=== PATIENT | female | born 1960 | race Caucasian/White ===

== ENCOUNTER 2022-02-18 22:19 | Emergency (ER) | payer OTHER ==
[~2022-02-18] VITALS: Ht 167.6 cm; Wt 92.5 kg
--- NOTE | 2022-02-18 22:29 | NUR ---
PT TAKEN TO BED 11 BIBA ALS
[2022-02-18 22:30] VITALS: BP 129/79
--- NOTE | 2022-02-18 22:31 | NUR ---
Patient BIB ambulance. Patiet stated she "ate clam chowder and started experiencing numbness and tingling." Patient stated she attempted to induce vomiting. Patient stated medical hx of htn. Patient is resting comfortably in bed, a/ox4, no c/o pain or s/s of distress. Patient oxygen saturation on room air is 95%. Patient does not have a fever, oral temperature 98 degrees F. Addendum: 02/18/22 at 2304 by [email or web address] Patient BIB ambulance. Patiet stated she "ate clam chowder and started experiencing numbness and tingling." Patient stated she attempted to induce vomiting. Patient stated medical hx of htn. Patient is resting comfortably in bed, a/ox4, no c/o pain or s/s of distress. Patient oxygen saturation on room air is 95%. Patient does not have a fever, oral temperature 98 degrees F. Patient stated she has allergies to shellfish and lotensin. Addendum: 02/18/22 at 2305 by [email or web address] Patient BIB ambulance. Patiet stated she "ate clam chowder and started experiencing numbness and tingling." Patient stated she "took benadryl due to dog allergy before eating clam chowder, EMT stated 50mg benadryl IM given to patient on transport. Patient stated she attempted to induce vomiting. Patient stated medical hx of htn. Patient is resting comfortably in bed, a/ox4, no c/o pain or s/s of distress. Patient oxygen saturation on room air is 95%. Patient does not have a fever, oral temperature 98 degrees F. Patient stated she has allergies to shellfish and lotensin.
[2022-02-18] MEDS ORDERED: predniSONE 20 MG TAB PO ONE (23:40)
[2022-02-18] MEDS ORDERED: PRED20TA5 PO (23:41)
[2022-02-18] MEDS ORDERED: DIPH25TA53 PO (23:41)
[2022-02-19] MEDS ORDERED: predniSONE 20 MG TAB ONE (00:42)
[2022-02-19 01:10] VITALS: BP 132/80
--- NOTE | 2022-02-19 01:10 | NUR ---
Patient discharged with v/s stable. Written and verbal after care instructions given and explained. Patient alert, oriented and verbalized understanding of instructions. Ambulatory with steady gait. All questions addressed prior to discharge. ID band removed. Patient advised to follow up with PMD. Rx of BENADRYL AND DELTASONE given. Patient educated on indication of medication including possible reaction and side effects. Opportunity to ask questions provided and answered. VSS, A/OX4, AMBULATORY, UNLABORED BREATHING, AND CALM DEMEANOR.
[2022-02-19] MEDS ORDERED: PRED20TA5 PO (01:15)
[2022-02-19] MEDS ORDERED: DIPH25TA53 PO (01:15)
== END 2022-02-19 01:10 | disposition home or self-care (01) ==
LOC: MED 22:19
DX: R51.9 Headache, unspecified (principal); T45.0X5A Adverse effect of antiallergic and antiemetic drugs, initial encounter; Y92.89 Other specified places as the place of occurrence of the external cause; I10 Essential (primary) hypertension; E78.5 Hyperlipidemia, unspecified; Z98.890 Other specified postprocedural states
CPT/HCPCS: 99283; J7512

== ENCOUNTER 2022-02-26 18:14 | Emergency (ER) | payer OTHER ==
[~2022-02-26] VITALS: Ht 167.6 cm; Wt 90.7 kg
[~2022-02-26 18:14] MED LIST: DIPH25TA53 PO; PRED20TA5 PO
[2022-02-26 18:16] VITALS: BP 116/77
--- NOTE | 2022-02-26 18:37 | NUR ---
MAHESH HERRERA AT BEDSIDE FOR EVAL
--- NOTE | 2022-02-26 18:43 | NUR ---
Female Junior Software Developer accompanied female patient for Rectal Exam.
--- NOTE | 2022-02-26 18:49 | NUR ---
61 Y/O FEMALE BIBA FROM HOME C/O BLOOD IN STOOL X 2 WEEKS, DENIES ABD PAIN, N/V/D. ALLERGY: LOTENSIN PMH: HTN
[2022-02-26] MEDS ORDERED: DOCU-299 PO (19:51)
[2022-02-26] MEDS ORDERED: HYDR25SU91 RC (19:51)
[2022-02-26 20:06] LABS: BASOPHILS # (AUTO) 0.1 K/uL (0.00-0.22); BASOPHILS % (AUTO) 0.3 % (0.0-2.0); EOSINOPHILS # (AUTO) 0.2 K/uL (0-0.4); EOSINOPHILS % (AUTO) 1.6 % (0.0-4.0); HEMATOCRIT 41.1 % (36-48); HEMOGLOBIN 14.2 g/dL (12.0-16.0); LYMPHOCYTES % (AUTO) 34.1 % (20.5-51.1); MEAN CORPUSCULAR HEMOGLOBIN 31 pg (27-31); MEAN CORPUSCULAR HGB CONC 35 g/dL (33-37); MEAN CORPUSCULAR VOLUME 90.5 fL (80-94); MONOCYTES # (AUTO) 1.6 K/uL (0.8-1.0); MONOCYTES % (AUTO) 10.7 % (1.7-9.3); NEUTROPHILS # (AUTO) 7.8 K/uL (1.8-7.7); NEUTROPHILS % (AUTO) 53.3 % (42.2-75.2); PLATELET COUNT (AUTO) 443 K/uL (140-450); RED BLOOD CELL COUNT(AUTO) 4.54 MIL/uL (4.20-5.40); RED CELL DISTRIBUTION WIDTH 13.8 % (11.6-13.7); WHITE BLOOD COUNT (AUTO) 14.6 K/uL (4.8-10.8)
[2022-02-26 20:18] LABS: ANION GAP 12.9 (8-16); CARBON DIOXIDE 27.9 mmol/L (21-32); CREATININE 1.1 mg/dL (0.6-1.3)
[2022-02-26 20:21] LABS: POTASSIUM 2.8 mmol/L (3.5-5.1)
--- NOTE | 2022-02-26 20:29 | NUR ---
pt ambulated to bed #8
[2022-02-26] MEDS ORDERED: POTASSIUM CHLORIDE 10 MEQ TABER PO ONE ×2 (20:30→20:35)
[2022-02-26 21:17] VITALS: BP 116/77
--- NOTE | 2022-02-26 21:17 | NUR ---
Patient discharged with v/s stable. Written and verbal after care instructions given RECTAL BLEEDING and explained. Patient alert, oriented and verbalized understanding of instructions. Ambulatory with steady gait. All questions addressed prior to discharge. ID band removed. Patient advised to follow up with PMD. Rx of COLACE, AND HYDROCORTISONE ACETATE given.
== END 2022-02-26 21:17 | disposition home or self-care (01) ==
LOC: MED 18:14
DX: K64.4 Residual hemorrhoidal skin tags (principal); E87.6 Hypokalemia; I10 Essential (primary) hypertension; E78.5 Hyperlipidemia, unspecified; Z79.4 Long term (current) use of insulin; Z90.711 Acquired absence of uterus with remaining cervical stump; F17.210 Nicotine dependence, cigarettes, uncomplicated
CPT/HCPCS: 36415; 80048; 85025; 99283

== ENCOUNTER 2022-07-24 13:21 | Emergency (ER) | payer OTHER ==
[~2022-07-24] VITALS: Ht 167.6 cm; Wt 90.7 kg
[~2022-07-24 13:21] MED LIST changes: +DOCU-299 PO; +HYDR25SU91 RC
[2022-07-24 13:31] VITALS: BP 126/69
[2022-07-24] MEDS ORDERED: TRAZ-343 PO (13:55)
[2022-07-24] MEDS ORDERED: METO25TE2 PO (13:57)
[2022-07-24] MEDS ORDERED: AMLO10TA PO (13:58)
[2022-07-24] MEDS ORDERED: GABA300C PO (14:00)
[2022-07-24 14:36] LABS: APPEARANCE,URINE CLEAR (CLEAR); BILIRUBIN,URINE NEGATIVE (NEGATIVE); BLOOD, URINE NEGATIVE (NEGATIVE); COLOR,URINE YELLOW (YELLOW); LEUKOCYTE ESTERASE ,URINE NEGATIVE (NEGATIVE); NITRITE, URINE NEGATIVE (NEGATIVE); PH,URINE 6.5 (5.0-9.0); UGLUCOSE NEGATIVE (NEGATIVE)
[2022-07-24] MEDS ORDERED: NAPROXEN 500 MG TAB PO SCH (14:50)
[2022-07-24] MEDS ORDERED: IBUPROFEN 600 MG TAB PO ONE (14:55)
[2022-07-24] MEDS ORDERED: LID5T TP (14:55)
[2022-07-24] MEDS ORDERED: CYCL-711 PO (14:55)
[2022-07-24 15:13] VITALS: BP 122/72
== END 2022-07-24 15:13 | disposition home or self-care (01) ==
LOC: MED 14:03
DX: M62.830 Muscle spasm of back (principal); G89.29 Other chronic pain; I10 Essential (primary) hypertension; Z79.899 Other long term (current) drug therapy; Z88.8 Allergy status to other drugs, medicaments and biological substances
CPT/HCPCS: 81003; 99283

== ENCOUNTER 2022-12-07 11:52 | Emergency (ER) | payer OTHER ==
[~2022-12-07] VITALS: Ht 167.6 cm; Wt 89.4 kg
[~2022-12-07 11:52] MED LIST changes: +AMLO10TA PO; +CYCL-711 PO; -DOCU-299 PO; +GABA300C PO; -HYDR25SU91 RC; +LID5T TP; +METO25TE2 PO; -PRED20TA5 PO; +TRAZ-343 PO
[2022-12-07 11:57] VITALS: BP 140/97
[2022-12-07 13:48] LABS: BASOPHILS % (AUTO) 0.3 % (0.0-2.0); EOSINOPHILS # (AUTO) 0.1 K/uL (0-0.4); EOSINOPHILS % (AUTO) 0.9 % (0.0-4.0); HEMATOCRIT 38.7 % (36-48); HEMOGLOBIN 13.2 g/dL (12.0-16.0); LYMPHOCYTES # (AUTO) 2.2 K/uL (2.5-16.5); LYMPHOCYTES % (AUTO) 35.1 % (20.5-51.1); MEAN CORPUSCULAR HEMOGLOBIN 31 pg (27-31); MEAN CORPUSCULAR HGB CONC 34 g/dL (33-37); MEAN CORPUSCULAR VOLUME 90.6 fL (80-94); MONOCYTES # (AUTO) 1.1 K/uL (0.8-1.0); MONOCYTES % (AUTO) 17.7 % (1.7-9.3); NEUTROPHILS # (AUTO) 2.9 K/uL (1.8-7.7); PLATELET COUNT (AUTO) 303 K/uL (140-450); RED BLOOD CELL COUNT(AUTO) 4.27 MIL/uL (4.20-5.40); RED CELL DISTRIBUTION WIDTH 13.9 % (11.6-13.7); WHITE BLOOD COUNT (AUTO) 6.3 K/uL (4.8-10.8)
[2022-12-07 14:03] LABS: PROTHROMBIN TIME 10.8 secs (10.8-13.4)
[2022-12-07 14:04] LABS: ALBUMIN 3.6 g/dL (3.4-5.0); ANION GAP 10.8 (8-16); CARBON DIOXIDE 29.1 mmol/L (21-32); CREATININE 0.9 mg/dL (0.6-1.3); TOTAL BILIRUBIN 0.3 mg/dL (0.0-1.0)
[2022-12-07 14:07] LABS: POTASSIUM 2.9 mmol/L (3.5-5.1)
[2022-12-07] MEDS ORDERED: POTASSIUM CHLORIDE 10 MEQ TABER PO ONE (14:20)
[2022-12-07] MEDS ORDERED: HYDR-2734 TP (14:22)
--- NOTE | 2022-12-07 14:45 | NUR ---
Patient discharged with v/s stable. Written and verbal after care instructions given and explained. Patient alert, oriented and verbalized understanding of instructions. Ambulatory with steady gait. All questions addressed prior to discharge. ID band removed. Patient advised to follow up with PMD. Rx of anusol given. Patient educated on indication of medication including possible reaction and side effects. Opportunity to ask questions provided and answered.
== END 2022-12-07 14:45 | disposition home or self-care (01) ==
LOC: MED 11:52
DX: K62.5 Hemorrhage of anus and rectum (principal); E87.6 Hypokalemia; R20.2 Paresthesia of skin; I10 Essential (primary) hypertension; Z88.8 Allergy status to other drugs, medicaments and biological substances; Z79.899 Other long term (current) drug therapy; Z90.711 Acquired absence of uterus with remaining cervical stump
CPT/HCPCS: 36415; 80053; 85025; 85610; 86886; 86900; 86901; 99283

== ENCOUNTER 2023-02-08 18:05 | Emergency (ER) | payer OTHER ==
[~2023-02-08] VITALS: Ht 167.6 cm; Wt 89.9 kg
[~2023-02-08 18:05] MED LIST changes: +HYDR-2734 TP
[2023-02-08 18:10] VITALS: BP 150/82; PULSE 96; RESP 20; TEMP 97.5; O2SAT 98
--- NOTE | 2023-02-08 19:58 | NUR ---
PTT AKEN TO BED 2
[2023-02-08 20:00] LABS: BASOPHILS % (AUTO) 0.2 % (0.0-2.0); EOSINOPHILS # (AUTO) 0.2 K/uL (0-0.4); EOSINOPHILS % (AUTO) 2.1 % (0.0-4.0); HEMATOCRIT 37.4 % (36-48); HEMOGLOBIN 12.5 g/dL (12.0-16.0); LYMPHOCYTES # (AUTO) 3.7 K/uL (2.5-16.5); LYMPHOCYTES % (AUTO) 34.5 % (20.5-51.1); MEAN CORPUSCULAR HEMOGLOBIN 31 pg (27-31); MEAN CORPUSCULAR HGB CONC 33 g/dL (33-37); MEAN CORPUSCULAR VOLUME 91.5 fL (80-94); MONOCYTES # (AUTO) 1.1 K/uL (0.8-1.0); MONOCYTES % (AUTO) 10.5 % (1.7-9.3); NEUTROPHILS # (AUTO) 5.7 K/uL (1.8-7.7); NEUTROPHILS % (AUTO) 52.7 % (42.2-75.2); PLATELET COUNT (AUTO) 352 K/uL (140-450); RED BLOOD CELL COUNT(AUTO) 4.09 MIL/uL (4.20-5.40); RED CELL DISTRIBUTION WIDTH 14.5 % (11.6-13.7); WHITE BLOOD COUNT (AUTO) 10.9 K/uL (4.8-10.8)
--- NOTE | 2023-02-08 20:10 | NUR ---
Patient received on bed lying and awake. Alert and oriented x4. No acute distress. Complained of left chest pain with scale of 10/10. Respirations even and unlabored.
[2023-02-08 20:14] LABS: PROTHROMBIN TIME 11.2 secs (10.8-13.4)
[2023-02-08] MEDS ORDERED: ACETAMINOPHEN EXTRA STRENGTH 500 MG TAB ONE (20:17)
[2023-02-08 20:21] LABS: ALBUMIN 3.6 g/dL (3.4-5.0); ANION GAP 12.6 (8-16); CARBON DIOXIDE 28.4 mmol/L (21-32); CREATININE 0.9 mg/dL (0.6-1.3); TOTAL BILIRUBIN 0.4 mg/dL (0.0-1.0)
[2023-02-08] MEDS: KETOROLAC 15 MG/ML VIAL IM ONE (20:25)
[2023-02-08] MEDS: ACETAMINOPHEN 325 MG TAB PO ONE (20:28)
[2023-02-08] MEDS: POTASSIUM CHLORIDE 10 MEQ TABER PO ONE (21:43)
[2023-02-08 21:53] VITALS: BP 143/89; PULSE 73; RESP 18; TEMP 97.9; O2SAT 98
--- NOTE | 2023-02-08 21:53 | NUR ---
Patient discharged with v/s stable. Written and verbal after care instructions given and explained. Patient verbalized understanding. Ambulatory with steady gait. All questions addressed prior to discharge. Advised to follow up with PMD.
== END 2023-02-08 21:53 | disposition home or self-care (01) ==
LOC: MED 18:05
DX: R07.89 Other chest pain (principal); E87.6 Hypokalemia; I10 Essential (primary) hypertension; E78.5 Hyperlipidemia, unspecified; Z79.899 Other long term (current) drug therapy; Z88.8 Allergy status to other drugs, medicaments and biological substances
CPT/HCPCS: 36415; 71045; 80053; 83880; 84484; 85025; 85610; 85730; 93005; 96372; 99285; J1885; 99283

== ENCOUNTER 2023-03-17 18:47 | Emergency (ER) | payer OTHER ==
[~2023-03-17] VITALS: Ht 167.6 cm; Wt 72.6 kg
[2023-03-17 19:30] VITALS: BP 152/92; PULSE 88; RESP 16; TEMP 97.9; O2SAT 100
== END 2023-03-17 22:48 | disposition left against medical advice (07) ==
LOC: MED 18:47
DX: L29.9 Pruritus, unspecified (principal); Z53.21 Procedure and treatment not carried out due to patient leaving prior to being seen by health care provider
CPT/HCPCS: 99281

== ENCOUNTER 2023-03-30 21:11 | Emergency (ER) | payer OTHER ==
[~2023-03-30] VITALS: Ht 167.6 cm; Wt 86.6 kg
[2023-03-30 21:20] VITALS: BP 127/71; PULSE 89; RESP 16; TEMP 99.4; O2SAT 98
[2023-03-30 21:43] LABS: BASOPHILS % (AUTO) 0.2 % (0.0-2.0); EOSINOPHILS # (AUTO) 0.3 K/uL (0-0.4); HEMATOCRIT 34.7 % (36-48); HEMOGLOBIN 11.8 g/dL (12.0-16.0); LYMPHOCYTES # (AUTO) 6.3 K/uL (2.5-16.5); LYMPHOCYTES % (AUTO) 49.1 % (20.5-51.1); MEAN CORPUSCULAR HEMOGLOBIN 31 pg (27-31); MEAN CORPUSCULAR HGB CONC 34 g/dL (33-37); MEAN CORPUSCULAR VOLUME 90.5 fL (80-94); MONOCYTES # (AUTO) 1.6 K/uL (0.8-1.0); MONOCYTES % (AUTO) 12.4 % (1.7-9.3); NEUTROPHILS # (AUTO) 4.7 K/uL (1.8-7.7); NEUTROPHILS % (AUTO) 36.3 % (42.2-75.2); PLATELET COUNT (AUTO) 389 K/uL (140-450); RED BLOOD CELL COUNT(AUTO) 3.84 MIL/uL (4.20-5.40); WHITE BLOOD COUNT (AUTO) 12.9 K/uL (4.8-10.8)
[2023-03-30 21:45] VITALS: TEMP 99.4
[2023-03-30 22:06] LABS: INR 1.05 (0.8-1.2); PARTIAL THROMBOPLASTIN TIME 24.3 secs (22-35.6)
[2023-03-30 22:12] LABS: ALBUMIN 3.4 g/dL (3.4-5.0); ANION GAP 13.4 (8-16); CALCIUM 9.7 mg/dL (8.5-10.1); POTASSIUM 3.4 mmol/L (3.5-5.1); TOTAL BILIRUBIN 0.2 mg/dL (0.0-1.0); TOTAL PROTEIN, SERUM 6.8 g/dL (6.4-8.2)
[2023-03-30] MEDS ORDERED: MORPHINE SULFATE 4 MG/ML SYR IVP ONE (23:05)
[2023-03-30] MEDS ORDERED: LID5T TP (23:08)
[2023-03-30] MEDS ORDERED: MORPHINE SULFATE 4 MG/ML SYR IM ONE (23:30)
[2023-03-30 23:35] VITALS: BP 145/79; PULSE 83; RESP 16; O2SAT 97
== END 2023-03-30 23:35 | disposition home or self-care (01) ==
LOC: MED 21:11
DX: K62.5 Hemorrhage of anus and rectum (principal); M54.50 Low back pain, unspecified; I10 Essential (primary) hypertension; Z79.899 Other long term (current) drug therapy; Z88.8 Allergy status to other drugs, medicaments and biological substances
CPT/HCPCS: 36415; 80053; 83690; 85025; 85610; 85730; 96372; 99283; J2270

== ENCOUNTER 2023-07-14 21:47 | Inpatient (IN) | payer OTHER ==
[~2023-07-14] VITALS: Ht 162.6 cm; Wt 79.4 kg
[2023-07-14 21:55] VITALS: BP 186/129; PULSE 100; RESP 24; TEMP 98.1; O2SAT 98
[2023-07-14] MEDS ORDERED: HYDROcodone/APAP 10/325 MG 1 TAB TAB PO STA (22:25)
[2023-07-14 23:02] VITALS: O2SAT 98
[2023-07-14 23:14] LABS: BASOPHILS % (AUTO) 0.4 % (0.0-2.0); EOSINOPHILS # (AUTO) 0.3 K/uL (0-0.4); EOSINOPHILS % (AUTO) 2.8 % (0.0-4.0); HEMATOCRIT 37.7 % (36-48); HEMOGLOBIN 12.8 g/dL (12.0-16.0); LYMPHOCYTES # (AUTO) 4.3 K/uL (2.5-16.5); LYMPHOCYTES % (AUTO) 41.2 % (20.5-51.1); MEAN CORPUSCULAR HEMOGLOBIN 30 pg (27-31); MEAN CORPUSCULAR HGB CONC 34 g/dL (33-37); MEAN CORPUSCULAR VOLUME 88.7 fL (80-94); MONOCYTES # (AUTO) 1.4 K/uL (0.8-1.0); MONOCYTES % (AUTO) 13.2 % (1.7-9.3); NEUTROPHILS # (AUTO) 4.4 K/uL (1.8-7.7); NEUTROPHILS % (AUTO) 42.4 % (42.2-75.2); PLATELET COUNT (AUTO) 352 K/uL (140-450); RED BLOOD CELL COUNT(AUTO) 4.25 MIL/uL (4.20-5.40); RED CELL DISTRIBUTION WIDTH 15.5 % (11.6-13.7); WHITE BLOOD COUNT (AUTO) 10.4 K/uL (4.8-10.8)
[2023-07-14 23:33] LABS: CALCIUM 9.2 mg/dL (8.5-10.1); CARBON DIOXIDE 26.1 mmol/L (21-32); CREATININE 0.8 mg/dL (0.6-1.3); POTASSIUM 3.1 mmol/L (3.5-5.1)
[2023-07-14] MEDS ORDERED: ASPIRIN 325 MG TAB PO ONE (23:45)
[2023-07-15] MEDS ORDERED: POTASSIUM CHLORIDE 10 MEQ TABER PO ONE (00:15)
[2023-07-15] MEDS ORDERED: ONDANSETRON 4 MG/2 ML VIAL IVP PRN (01:15)
[2023-07-15] MEDS ORDERED: LABETALOL 20 MG/4 ML VIAL IVP PRN ×2 (01:15→07:45)
[2023-07-15] MEDS ORDERED: MORPHINE SULFATE 2 MG/ML SYR IVP PRN (01:15)
[2023-07-15] MEDS ORDERED: HYDROcodone/APAP 5/325 MG 1 TAB TAB PO PRN (01:15)
[2023-07-15] MEDS ORDERED: HYDR-5191 PO ×2 (03:04→13:53)
[2023-07-15] MEDS ORDERED: ASPI-1822 PO ×2 (03:04→14:16)
[2023-07-15] MEDS ORDERED: ELA50 PO ×2 (03:04→14:21)
[2023-07-15] MEDS ORDERED: ROSU10TA1 PO ×2 (03:04→14:16)
[2023-07-15] MEDS ORDERED: AMLO10TA PO ×2 (03:04→14:16)
[2023-07-15] MEDS ORDERED: LOSA50TA66 PO ×2 (03:04→14:16)
[2023-07-15 03:08] VITALS: O2SAT 97
[2023-07-15] MEDS ORDERED: METOPROLOL SUCCINATE 50 MG TABER PO SCH (09:00)
[2023-07-15] MEDS ORDERED: amLODIPine 5 MG TAB PO SCH (09:00)
[2023-07-15 09:30] VITALS: BP 153/83; PULSE 69; PULSE 84; RESP 18; RESP 20; TEMP 98.5; O2SAT 98
[2023-07-15 12:00] VITALS: BP 143/69; PULSE 70; PULSE 84; RESP 18; TEMP 98.6; O2SAT 99
[2023-07-15] MEDS ORDERED: HYDR-5043 PO (14:16)
[2023-07-15] MEDS ORDERED: GABA300C PO (14:16)
[2023-07-15] MEDS ORDERED: POTA10TA70 PO (14:16)
[2023-07-15] MEDS ORDERED: traZODone 50 MG TAB PO SCH (21:00)
[2023-07-16] MEDS ORDERED: ASPIRIN 81 MG TAB.CHEW PO SCH (09:00)
== END 2023-07-15 15:00 | disposition home or self-care (01) | DRG 305 ==
LOC: MED 21:47 → MTU 07-15 01:18
PROVIDERS: ADMIT Internal Medicine; ATTEND Internal Medicine
DX: I16.0 Hypertensive urgency (principal); R07.89 Other chest pain; Z91.148 Patient's other noncompliance with medication regimen for other reason; G89.4 Chronic pain syndrome; I10 Essential (primary) hypertension; Z88.8 Allergy status to other drugs, medicaments and biological substances
CPT/HCPCS: 36415; 71045; 80048; 84484; 85025; 93005; 99285; J2270; J2405; Q0092